=== PATIENT | female | born 1970 | race Caucasian/White ===

== ENCOUNTER → 2016-06-05 | Outpatient (CLI) | payer OTHER ==
[~2016-06-05] MED LIST: BACTRIM DS TABL1 TA1 PO; HYCODAN60 ML 5MG/ PO; NO MEDICATIONS; PREDNISONE PO
--- NOTE | ~2016-06-05 | MY11 ---
[facility] A Service of [facility] & [facility] RADIOLOGY TEXT RESULTS PATIENT: SUSHMA LEWIS LOCATION: [facility] : 74 UNIT #: [id number] AGE: [address]: Angelika Benitez SEX: F ORDER DR: [id number] [facility] [address] [place], [place] [address] [id number] O MR#: [id number] Acc #: [id number] NAME: SUSHMA LEWIS : 1970 SEX: F STUDY DATE/TIME: 06/05/2016 12:16 UNIT: [facility] ROOM: STUDY DESCRIPTION: MY Mammogram Screening Dig Jayme Attending Physician: Angelika Benitez A.P.R.N. Referring Physician: Angelika Benitez A.P.R.N. Ordering Physician: Angelika Benitez A.P.R.N. Primary Care Physician: Angelika Benitez A.P.R.N. MEDICAL IMAGING REPORT This report is preliminary unless electronic signature is present EXAM Digital screening mammogram, 06/05/2016. HISTORY 46-year-old woman; previous augmentation. No risk elevation. Annual screening. COMPARISON Mammograms 03/23/2006, 06/14/2014 with follow-up diagnostic left breast imaging, 07/27/2014, diagnostic right breast 09/20/2014. FINDINGS Digital imaging of each breast was completed, utilizing conventional projections and standard Anthony views. Review includes FDA-approved CAD device. Bilateral subpectoral saline implants are stable. Breast parenchyma remains extremely dense with combination fibroglandular parenchyma and fibronodularity. Subareolar duct prominence is noted in each breast. Occasion faint calcification with benign characteristics in each breast. I see no interval-occurring suspicious microcalcifications. There are no suspicious mass characteristics and no focal architectural disturbance. IMPRESSION Benign mammogram with dense breast parenchyma. Stable retropectoral saline implants. Annual screening recommended. Patients over the age of 40 are entered into a reminder system with target due date for the next mammogram. A result letter will also be sent to the patient. BIRADS: 2 Benign finding. [facility] A Service of [facility] & [facility] RADIOLOGY TEXT RESULTS PATIENT: SUSHMA LEWIS LOCATION: [facility] : 74 UNIT #: [id number] AGE: [address]: Angelika Benitez SEX: F ORDER DR: Dictated by... Bin Gavin M.D. THIS IS AN ELECTRONICALLY VERIFIED REPORT Bin Gavin M.D. at 06/05/2016 3:31 PM Altagracia TD: 06/05/2016 13:53 JOB #: [id number] MEDICAL IMAGING REPORT Page 1 of 1 COPY
== END | disposition home or self-care (01) ==
LOC: CWCC 11:55
DX: Z12.31 Encounter for screening mammogram for malignant neoplasm of breast (principal); R92.8 Other abnormal and inconclusive findings on diagnostic imaging of breast; Z98.82 Breast implant status
CPT/HCPCS: G0202

== ENCOUNTER → 2016-10-22 | Outpatient (CLI) | payer OTHER ==
--- NOTE | ~2016-10-22 | CR63 ---
[facility] A Service of [facility] & [facility] RADIOLOGY TEXT RESULTS PATIENT: SUSHMA LEWIS LOCATION: [facility] : 74 UNIT #: [id number] AGE: [address]: Dayron Apodaca MD SEX: F ORDER DR: [id number] [facility] [address] [place], [place] [address] [id number] O MR#: [id number] Acc #: [id number] NAME: SUSHMA LEWIS : 1970 SEX: F STUDY DATE/TIME: 10/22/2016 14:22 UNIT: [facility] ROOM: STUDY DESCRIPTION: CR Chest 2 View Attending Physician: Dayron Apodaca M.D. Referring Physician: Dayron Apodaca M.D. Ordering Physician: Dayron Apodaca M.D. Primary Care Physician: Angelika Benitez A.P.R.N. MEDICAL IMAGING REPORT This report is preliminary unless electronic signature is present EXAM Two views chest, 10/22/2016 HISTORY Bullous emphysema. Short of air. Smoker 35 years. FINDINGS PA and lateral radiographs of the chest are presented. Comparison 09/19/2015. No acute bony abnormality. Heart normal in size. Hyperinflation of the lungs consistent with underlying emphysema. Bullous changes in the bilateral apices, more pronounced on the right than left. Bullous changes bilateral lung bases more pronounced on the right than the left. Surgical chain sutures and surgical clips in the right hilar and upper lung zone unchanged. There is no evidence of acute infectious or inflammatory disease, pleural effusion or pneumothorax. There is no suspicious nodule. The visualized upper abdomen is unremarkable. I believe the patient is status post bilateral augmentation mammoplasty. Dictated by... Orion Liu M.D. THIS IS AN ELECTRONICALLY VERIFIED REPORT Orion Liu M.D. at 10/23/2016 6:15 PM Estella TD: 10/22/2016 22:08 JOB #: [id number] MEDICAL IMAGING REPORT Page 1 of 1 COPY
== END | disposition home or self-care (01) ==
LOC: CLAB 14:09
DX: J43.9 Emphysema, unspecified (principal)
CPT/HCPCS: 71020